=== PATIENT | female | born 1930 | race Caucasian/White ===

== ENCOUNTER 2016-11-26 22:00 | Inpatient (IN) | payer OTHER, BC ==
[~2016-11-26] VITALS: Ht 152.4 cm; Wt 43.7 kg
[~2016-11-26 22:00] MED LIST: ALLOPURINOL100 MG PO; ANTIVERT25 MG PO; ARICEPT10 MG PO; ASPIR 8181 M1 PO; ASPIR-LOW81 MG PO; ASPIRIN EC325 M1 PO; ATENOLOL25 MG PO; ATORVASTATIN CA40 MG PO; Aspirin E.C. PO; BENADRYL25 MG PO; BISOPROLOL FUMAR5 MG PO; BUTALB-APAP-CA1 EACH PO; COLCRYS0.6 MG PO; COZAAR100 MG PO; DIGITEK125 MC2 PO; DIGOXIN125 MCG PO; FUROSEMIDE20 MG PO; HYDROCODON-ACE1 EAC7 PO; LANOXIN,DIGI0.125 MG PO; LASIX20 MG PO; LIPITOR10 MG PO; LOSARTAN POTAS100 MG; LOSARTAN POTAS100 MG PO; METOPROLOL SUCC25 MG PO; METOPROLOL TART25 MG PO; MONTELUKAST SOD10 MG PO; PANTOPRAZOLE SO40 MG PO; PLAVIX75 MG PO; PREDNISONE10 MG PO; PROTONIX40 MG PO; SINGULAIR10 MG PO; TOPROL XL50 MG PO; TYLENOL REGULA325 MG PO; VITAMIN D400 UNI1 PO; ZESTRIL2.5 MG PO
[2016-11-26 22:54] LABS: HEMATOCRIT 24.3 % (36.0-46.0); MCH 27.8 PG (29.0-34.0); MCHC 32.1 G/DL (30.0-36.0); MCV 86.5 FL (83-99); MEAN PLAT.VOLUME 11.4 uM^3 (9.5-12.4); PLATELET COUNT 155 K/uL (156-360); RBC DIS.WIDTH-CV 14.6 % (11.8-14.6); RBC DIS.WIDTH-SD 46.5 % (39-53); RED BLOOD COUNT 2.81 M/uL (3.80-5.20); WHITE BLOOD COUNT 33.1 K/uL (4.1-10.2)
[2016-11-26 23:17] LABS: CHLORIDE 101 mEq/L (99-109); POTASSIUM 4.8 mEq/L (3.7-5.4); SODIUM 130 mEq/L (136-147)
[2016-11-26 23:19] LABS: GLUCOSE 136 mg/dL (70-99)
[2016-11-26 23:20] LABS: D-DIMER ELISA 0.46 mg/L FEU (< 0.57)
[2016-11-26 23:21] LABS: ANION GAP 15 MEQ/L (2-14)
[2016-11-26 23:23] LABS: GFR ESTIMATE (CALCULATED) 24 mL/min/
[2016-11-26 23:24] LABS: UREA NITROGEN (BUN) 48 mg/dL (9-23)
[2016-11-26 23:30] LABS: TROP-I INTERPRETATION POSITIVE
[2016-11-27] VITALS (32 sets, daily range): BP systolic 93–122; BP diastolic 35–67
[2016-11-27 00:29] LABS: BASE EXCESS -7.8 mEq/L (-3 to +3); BICARBONATE 16.3 mEq/L (22-26); CARBOXY HGB 1.1 % (0-5); METHEMOGLOBIN 1.5 % (0-1.5); PCO2 27 mm Hg (35-45); PO2 72 mm Hg (80-100); pH 7.39 (7.35-7.45)
[2016-11-27 00:30] LABS: COMMENTS - BLOOD GASES A+C+; DEVICE RA; SITE LR; TOTAL RESP RATE 25 resp/min
[2016-11-27 00:51] LABS: INTER. NORMALIZED RATIO 1.2; PROTHROMBIN TIME 12.4 (9.2-11.2); PTT 29.8 (25-32)
[2016-11-27 05:37] LABS: METH RESISTANT S AUREUS PCR NEGATIVE (NEGATIVE)
[2016-11-27 05:41] LABS: PROBE CHECK PASS; SPECIMEN PROCESSING CONTROL PASS
[2016-11-27 06:08] LABS: HEMATOCRIT 22.6 % (36.0-46.0); MCH 28.2 PG (29.0-34.0); MCHC 31.9 G/DL (30.0-36.0); MCV 88.6 FL (83-99); MEAN PLAT.VOLUME 11.5 uM^3 (9.5-12.4); PLATELET COUNT 152 K/uL (156-360); RBC DIS.WIDTH-CV 14.6 % (11.8-14.6); RBC DIS.WIDTH-SD 47.6 % (39-53); RED BLOOD COUNT 2.55 M/uL (3.80-5.20); WHITE BLOOD COUNT 28.4 K/uL (4.1-10.2)
[2016-11-27 07:19] LABS: TROP-I INTERPRETATION POSITIVE; TROPONIN-I 23.78 ng/mL (0.0-0.30)
[2016-11-27 07:20] LABS: ABS NEUTROPHIL COUNT 22.7; BAND NEUTROPHILS 2.5 % (0-8.0); EOSINOPHIL ABS CT 0; INSTRUMENT ABS NEUTROPHIL CT 19.1 K/uL; LYMPHOCYTES 4.5 % (15.0-45.0); MACROCYTES 1+; PLAT.SUFFICIENCY ADEQUATE; SEG.NEUTROPHILS 77.5 % (46.0-76.0)
[2016-11-27 07:34] LABS: Estimated Average Glucose 137 mg/dL (70-123); HEMOGLOBIN A1c (GLYCOHEMOGLOB) 6.4 % HGB (Below 5.7)
[2016-11-27 08:28] LABS: ANION GAP 15 MEQ/L (2-14); CHLORIDE 102 MEQ/L (99-109); GFR ESTIMATE (CALCULATED) 28 mL/min/; GLUCOSE 164 mg/dL (70-99); HDL CHOLESTEROL 37 MG/DL (Desirable>=50); LDL CHOLESTEROL 60 mg/dL (Desirable<100); MAGNESIUM 2.1 mg/dl (1.3-2.7); NON-HDL CHOLESTEROL 73 mg/dL (Desirable<160); POTASSIUM 5.2 MEQ/L (3.7-5.4); SAMPLE HEMOLYSIS CHECK 0; SAMPLE ICTERIC CHECK 0; SAMPLE LIPEMIA CHECK 0; SODIUM 130 MEQ/L (136-147); TOTAL CHOLESTEROL 110 mg/dL (Desirable<200); TRIGLYCERIDES 66 MG/DL (Normal: <150); UREA NITROGEN (BUN) 44 mg/dL (9-23)
[2016-11-27 08:43] LABS: BASE EXCESS -9.7 mEq/L (-3 to +3); BICARBONATE 14.9 mEq/L (22-26); CARBOXY HGB 1.4 % (0-5); METHEMOGLOBIN 2.1 % (0-1.5); PCO2 27 mm Hg (35-45); pH 7.35 (7.35-7.45)
[2016-11-27 08:44] LABS: COMMENTS - BLOOD GASES A+C+; DEVICE NC; O2 FLOW 2 L/MIN; PO2 138 mm Hg (80-100); SITE RR
[2016-11-27 12:37] LABS: TROP-I INTERPRETATION POSITIVE
[2016-11-27 13:13] LABS: TROPONIN-I 60.99 ng/mL (0.0-0.30)
[2016-11-27 18:18] LABS: MCV 85.8 FL (83-99)
[2016-11-27 19:38] LABS: TROP-I INTERPRETATION POSITIVE
[2016-11-27 20:00] LABS: TROPONIN-I 64.31 ng/mL (0.0-0.30)
[2016-11-28] VITALS (13 sets, daily range): BP systolic 85–121; BP diastolic 33–52
[2016-11-28 07:08] LABS: HEMATOCRIT 26.7 % (36.0-46.0); MCHC 32.6 G/DL (30.0-36.0); MCV 85.9 FL (83-99); RBC DIS.WIDTH-CV 16.1 % (11.8-14.6); RBC DIS.WIDTH-SD 50.4 % (39-53); WHITE BLOOD COUNT 22.2 K/uL (4.1-10.2)
[2016-11-28 07:10] LABS: TROP-I INTERPRETATION POSITIVE; TROPONIN-I 41.62 ng/mL (0.0-0.30)
[2016-11-28 07:14] LABS: RED BLOOD COUNT 3.11 M/uL (3.80-5.20)
[2016-11-28 07:35] LABS: ALKALINE PHOSPHATASE 73 IU/L (3-129); ANION GAP 12 MEQ/L (2-14); CHLORIDE 103 MEQ/L (99-109); GFR ESTIMATE (CALCULATED) 22 mL/min/; SAMPLE HEMOLYSIS CHECK 0; SAMPLE ICTERIC CHECK 0; SAMPLE LIPEMIA CHECK 0; SODIUM 132 MEQ/L (136-147); TOTAL BILIRUBIN 0.5 MG/DL (0.0-1.0); UREA NITROGEN (BUN) 56 mg/dL (9-23)
[2016-11-28 07:37] LABS: GLUCOSE 98 mg/dL (70-99)
[2016-11-28 10:50] LABS: EOSINOPHIL (%) 0 % (0-5); IMMATURE GRANULOCYTE (%) 2.2 % (0.0-0.7); IMMATURE GRANULOCYTE COUNT 0.5 K/uL; INSTRUMENT ABS NEUTROPHIL CT 9.4 K/uL; LYMPHOCYTE COUNT 0.9 K/uL (1.0-2.8); MONOCYTE (%) 51.5 % (3-12); MONOCYTE COUNT 11.5 K/uL (0-0.8); NEUTROPHIL (%) 42.3 % (45-76); NEUTROPHIL COUNT 9.4 K/uL (1.8-6.4)
[2016-11-28 17:06] LABS: C DIFF TOXIN NEGATIVE (NEGATIVE)
[2016-11-28 17:08] LABS: PROBE CHECK PASS; SPECIMEN PROCESSING CONTROL PASS
[2016-11-29] VITALS (9 sets, daily range): BP systolic 78–124; BP diastolic 42–56
[2016-11-29 04:56] LABS: MEAN PLAT.VOLUME 12.1 uM^3 (9.5-12.4); PLATELET COUNT 121 K/uL (156-360)
[2016-11-29 05:02] LABS: HEMATOCRIT 28.8 % (36.0-46.0); MCH 28.5 PG (29.0-34.0); MCV 86.5 FL (83-99); RBC DIS.WIDTH-CV 16.1 % (11.8-14.6); RBC DIS.WIDTH-SD 50.5 % (39-53); RED BLOOD COUNT 3.33 M/uL (3.80-5.20)
[2016-11-29 05:10] LABS: CHLORIDE 106 mEq/L (99-109); POTASSIUM 4.3 mEq/L (3.7-5.4); SODIUM 133 mEq/L (136-147)
[2016-11-29 05:12] LABS: GLUCOSE 109 mg/dL (70-99)
[2016-11-29 05:14] LABS: ANION GAP 13 MEQ/L (2-14)
[2016-11-29 05:16] LABS: GFR ESTIMATE (CALCULATED) 24 mL/min/
[2016-11-29 05:17] LABS: UREA NITROGEN (BUN) 56 mg/dL (9-23)
[2016-11-29 06:13] LABS: IRON 110 MCG/DL (35-150)
[2016-11-29 09:05] LABS: FERRITIN > 1500 NG/ML (10-291)
[2016-11-29 09:09] LABS: DIGOXIN 2.9 ng/mL (0.8-2.0)
[2016-11-30] VITALS (9 sets, daily range): BP systolic 106–119; BP diastolic 36–47
[2016-11-30 04:45] LABS: CHLORIDE 106 mEq/L (99-109); POTASSIUM 3.5 mEq/L (3.7-5.4); SODIUM 133 mEq/L (136-147)
[2016-11-30 04:47] LABS: GLUCOSE 86 mg/dL (70-99)
[2016-11-30 04:48] LABS: ANION GAP 12 MEQ/L (2-14)
[2016-11-30 04:50] LABS: GFR ESTIMATE (CALCULATED) 30 mL/min/
[2016-11-30 04:51] LABS: UREA NITROGEN (BUN) 43 mg/dL (9-23)
[2016-12-01] VITALS: BP 128/46
[2016-12-01 05:00] VITALS: BP 133/43
[2016-12-01 06:14] LABS: EOSINOPHIL (%) 0.3 % (0-5); EOSINOPHIL COUNT 0.1 K/uL (0-0.3); HEMATOCRIT 27.2 % (36.0-46.0); IMMATURE GRANULOCYTE (%) 4.2 % (0.0-0.7); IMMATURE GRANULOCYTE COUNT 0.9 K/uL; INSTRUMENT ABS NEUTROPHIL CT 11.1 K/uL; MCH 28.3 PG (29.0-34.0); MCHC 32.7 G/DL (30.0-36.0); MCV 86.3 FL (83-99); MEAN PLAT.VOLUME 11.9 uM^3 (9.5-12.4); MONOCYTE COUNT 9.1 K/uL (0-0.8); NEUTROPHIL COUNT 11.1 K/uL (1.8-6.4); PLATELET COUNT 144 K/uL (156-360); RBC DIS.WIDTH-CV 16.2 % (11.8-14.6); RBC DIS.WIDTH-SD 51.4 % (39-53); RED BLOOD COUNT 3.15 M/uL (3.80-5.20)
[2016-12-01 06:17] LABS: WHITE BLOOD COUNT 22.3 K/uL (4.1-10.2)
[2016-12-01 06:55] LABS: ANION GAP 10 MEQ/L (2-14); CHLORIDE 104 MEQ/L (99-109); GFR ESTIMATE (CALCULATED) 35 mL/min/; GLUCOSE 91 mg/dL (70-99); POTASSIUM 3.8 MEQ/L (3.7-5.4); SAMPLE HEMOLYSIS CHECK 0; SAMPLE ICTERIC CHECK 0; SAMPLE LIPEMIA CHECK 0; SODIUM 134 MEQ/L (136-147); UREA NITROGEN (BUN) 35 mg/dL (9-23)
[2016-12-01 08:00] VITALS: BP 140/52
[2016-12-01 12:00] VITALS: BP 143/55
[2016-12-01 15:40] VITALS: BP 131/44
[2016-12-02] MEDS ORDERED: METOPROLOL TART25 MG PO (14:23)
[2016-12-02] MEDS ORDERED: CLOPIDOGREL75 MG PO (14:24)
[2016-12-02] MEDS ORDERED: ASPIRIN EC325 MG PO (14:24)
[2016-12-02] MEDS ORDERED: NITROSTAT0.4 MG SL (14:25)
[2016-12-02] MEDS ORDERED: BENADRYL25 MG PO (14:26)
== END 2016-12-01 15:50 | DRG 246 ==
LOC: EME → EDBD 22:00 → EME 22:00 → CATH 11-27 01:01 → EME 11-27 01:01 → 4WEST 11-27 04:05
PROVIDERS: Anesthesiology; Emergency Medicine; Hospitalist; Internal Medicine; Internal Medicine Critical Care Medicine; Internal Medicine Interventional Cardiology; Internal Medicine Nephrology
DX: I21.11 ST elevation (STEMI) myocardial infarction involving right coronary artery (principal); R57.0 Cardiogenic shock; K72.00 Acute and subacute hepatic failure without coma; I23.7 Postinfarction angina; T82.855A Stenosis of coronary artery stent, initial encounter; N17.0 Acute kidney failure with tubular necrosis; C93.10 Chronic myelomonocytic leukemia not having achieved remission; E87.2 Acidosis; Q25.46 Tortuous aortic arch; I50.22 Chronic systolic (congestive) heart failure; Z68.1 Body mass index [BMI] 19.9 or less, adult; I25.10 Atherosclerotic heart disease of native coronary artery without angina pectoris; I12.9 Hypertensive chronic kidney disease with stage 1 through stage 4 chronic kidney disease, or unspecified chronic kidney disease; N18.3 Chronic kidney disease, stage 3 (moderate); D63.0 Anemia in neoplastic disease; I48.0 Paroxysmal atrial fibrillation; I08.3 Combined rheumatic disorders of mitral, aortic and tricuspid valves; I44.7 Left bundle-branch block, unspecified; F03.90 Unspecified dementia, unspecified severity, without behavioral disturbance, psychotic disturbance, mood disturbance, and anxiety; R63.6 Underweight; I25.2 Old myocardial infarction; Z86.73 Personal history of transient ischemic attack (TIA), and cerebral infarction without residual deficits; Z79.82 Long term (current) use of aspirin; Z88.2 Allergy status to sulfonamides; Z88.7 Allergy status to serum and vaccine; Z87.891 Personal history of nicotine dependence; E87.6 Hypokalemia
CPT/HCPCS: 36600; 71010; 71020; 76770; 80048; 80053; 80061; 80069; 80162; 81003; 82306; 82607; 82728; 82746; 82803; 83036; 83540; 83605; 83735; 84100; 84300; 84443; 84466; 84484; 85014; 85018; 85025; 85027; 85347; 85379; 85610; 85730; 86850; 86900; 86901; 86920; 87040; 87493; 87641; 93005; 93306; 94799; 99281; 99285; C1725; C1769; C1874; C1887; C1894; J0153; J0456; J0461; J0696; J1160; J1265; J1630; J1644; J1940; J2250; J2405; J2930; J3010; J7030; J7050; P9016; S0028

== ENCOUNTER 2016-12-02 12:26 | Inpatient (IN) | payer OTHER, BC ==
[~2016-12-02] VITALS: Ht 154.9 cm; Wt 44.2 kg
[2016-12-02 13:17] LABS: HEMATOCRIT 30.8 % (36.0-46.0); MCH 27.8 PG (29.0-34.0); MCHC 31.8 G/DL (30.0-36.0); MCV 87.3 FL (83-99); MEAN PLAT.VOLUME 11.9 uM^3 (9.5-12.4); PLATELET COUNT 177 K/uL (156-360); RBC DIS.WIDTH-CV 16.5 % (11.8-14.6); RBC DIS.WIDTH-SD 52.4 % (39-53); RED BLOOD COUNT 3.53 M/uL (3.80-5.20); WHITE BLOOD COUNT 26.4 K/uL (4.1-10.2)
[2016-12-02 13:24] LABS: CHLORIDE 107 mEq/L (99-109); INTER. NORMALIZED RATIO 1.2; POTASSIUM 4.4 mEq/L (3.7-5.4); PROTHROMBIN TIME 12.6 (9.2-11.2); SODIUM 136 mEq/L (136-147)
[2016-12-02 13:25] LABS: MAGNESIUM 2.2 mg/dL (1.3-2.7)
[2016-12-02 13:26] LABS: GLUCOSE 115 mg/dL (70-99)
[2016-12-02 13:27] LABS: ANION GAP 14 MEQ/L (2-14)
[2016-12-02 13:29] LABS: GFR ESTIMATE (CALCULATED) 35 mL/min/; PTT 23.1 (25-32)
[2016-12-02 13:30] LABS: UREA NITROGEN (BUN) 32 mg/dL (9-23)
[2016-12-02 13:37] LABS: TROP-I INTERPRETATION POSITIVE; TROPONIN-I 7.72 ng/mL (0.0-0.30)
[2016-12-02 14:04] LABS: ABS NEUTROPHIL COUNT 20.5; BAND NEUTROPHILS 4.5 % (0-8.0); EOSINOPHIL ABS CT 0.2; EOSINOPHILS 0.9 % (0-5.0); INSTRUMENT ABS NEUTROPHIL CT 14.1 K/uL; LYMPHOCYTES 2.7 % (15.0-45.0); MACROCYTES 1+; OVALOCYTES 1+; PLAT.SUFFICIENCY ADEQUATE; SEG.NEUTROPHILS 73.2 % (46.0-76.0); SPHEROCYTES 1+
[2016-12-02] MEDS ORDERED: METOPROLOL TART25 MG PO (14:23)
[2016-12-02] MEDS ORDERED: CLOPIDOGREL75 MG PO (14:24)
[2016-12-02] MEDS ORDERED: ASPIRIN EC325 MG PO (14:24)
[2016-12-02] MEDS ORDERED: NITROSTAT0.4 MG SL (14:25)
[2016-12-02] MEDS ORDERED: BENADRYL25 MG PO (14:26)
[2016-12-02 17:32] VITALS: BP 138/62
[2016-12-02 19:10] LABS: TROP-I INTERPRETATION POSITIVE; TROPONIN-I 8.71 ng/mL (0.0-0.30)
[2016-12-02 20:06] VITALS: BP 136/60
[2016-12-02 23:38] VITALS: BP 120/56
[2016-12-03 01:23] LABS: TROP-I INTERPRETATION POSITIVE; TROPONIN-I 6.62 ng/mL (0.0-0.30)
[2016-12-03 04:00] VITALS: BP 136/60
[2016-12-03 07:11] LABS: HEMATOCRIT 29.5 % (36.0-46.0); MCH 27.4 PG (29.0-34.0); MCHC 31.5 G/DL (30.0-36.0); MEAN PLAT.VOLUME 11.6 uM^3 (9.5-12.4); PLATELET COUNT 176 K/uL (156-360); RBC DIS.WIDTH-CV 16.2 % (11.8-14.6); RBC DIS.WIDTH-SD 51.6 % (39-53); RED BLOOD COUNT 3.39 M/uL (3.80-5.20)
[2016-12-03 07:32] LABS: ANION GAP 11 MEQ/L (2-14); CHLORIDE 101 MEQ/L (99-109); GFR ESTIMATE (CALCULATED) 35 mL/min/; GLUCOSE 112 mg/dL (70-99); MAGNESIUM 1.8 mg/dl (1.3-2.7); POTASSIUM 3.7 MEQ/L (3.7-5.4); SAMPLE HEMOLYSIS CHECK 0; SAMPLE ICTERIC CHECK 0; SAMPLE LIPEMIA CHECK 0; SODIUM 134 MEQ/L (136-147); UREA NITROGEN (BUN) 28 mg/dL (9-23); URIC ACID 8.5 mg/dL (3.1-9.2)
[2016-12-03 07:45] VITALS: BP 133/64
[2016-12-03 08:11] LABS: DIGOXIN 1.9 ng/mL (0.8-2.0)
[2016-12-03 12:12] VITALS: BP 127/58
[2016-12-03 16:55] VITALS: BP 134/63
[2016-12-03 19:10] VITALS: BP 148/66
[2016-12-03 23:52] VITALS: BP 130/89
[2016-12-04 04:00] VITALS: BP 132/86
[2016-12-04 05:06] LABS: HEMATOCRIT 27.1 % (36.0-46.0); MCHC 32.5 G/DL (30.0-36.0); MCV 86.3 FL (83-99); MEAN PLAT.VOLUME 11.7 uM^3 (9.5-12.4); PLATELET COUNT 198 K/uL (156-360); RBC DIS.WIDTH-CV 15.9 % (11.8-14.6); RBC DIS.WIDTH-SD 50.1 % (39-53); RED BLOOD COUNT 3.14 M/uL (3.80-5.20); WHITE BLOOD COUNT 26.4 K/uL (4.1-10.2)
[2016-12-04 05:14] LABS: CHLORIDE 99 mEq/L (99-109); POTASSIUM 3.7 mEq/L (3.7-5.4); SODIUM 131 mEq/L (136-147)
[2016-12-04 05:16] LABS: GLUCOSE 132 mg/dL (70-99)
[2016-12-04 05:17] LABS: ANION GAP 11 MEQ/L (2-14)
[2016-12-04 05:20] LABS: GFR ESTIMATE (CALCULATED) 35 mL/min/
[2016-12-04 05:21] LABS: UREA NITROGEN (BUN) 31 mg/dL (9-23)
[2016-12-04 07:05] LABS: ABS NEUTROPHIL COUNT 18.6; ANISOCYTOSIS 1+; BAND NEUTROPHILS 2.7 % (0-8.0); EOSINOPHIL ABS CT 0; INSTRUMENT ABS NEUTROPHIL CT 11.5 K/uL; LYMPHOCYTES 3.6 % (15.0-45.0); MICROCYTOSIS 1+; OVALOCYTES 1+; PLAT.SUFFICIENCY ADEQUATE; SEG.NEUTROPHILS 67.6 % (46.0-76.0)
[2016-12-04 07:09] VITALS: BP 129/60
[2016-12-04 11:37] VITALS: BP 154/67
[2016-12-04 15:33] VITALS: BP 151/65
[2016-12-04 19:21] VITALS: BP 135/65
[2016-12-04 23:08] VITALS: BP 151/60
[2016-12-04 23:32] LABS: METH RESISTANT S AUREUS PCR NEGATIVE (NEGATIVE)
[2016-12-04 23:33] LABS: PROBE CHECK PASS; SPECIMEN PROCESSING CONTROL PASS
[2016-12-05 02:39] VITALS: BP 151/67
[2016-12-05 04:21] VITALS: BP 158/70
[2016-12-05 05:55] LABS: HEMATOCRIT 25.1 % (36.0-46.0); MCHC 32.3 G/DL (30.0-36.0); MCV 86.9 FL (83-99); MEAN PLAT.VOLUME 11.6 uM^3 (9.5-12.4); PLATELET COUNT 174 K/uL (156-360); RBC DIS.WIDTH-SD 50.7 % (39-53); RED BLOOD COUNT 2.89 M/uL (3.80-5.20); WHITE BLOOD COUNT 23.5 K/uL (4.1-10.2)
[2016-12-05 06:46] LABS: ANION GAP 11 MEQ/L (2-14); CHLORIDE 98 MEQ/L (99-109); GFR ESTIMATE (CALCULATED) 35 mL/min/; POTASSIUM 3.6 MEQ/L (3.7-5.4); SAMPLE HEMOLYSIS CHECK 0; SAMPLE ICTERIC CHECK 0; SAMPLE LIPEMIA CHECK 0; SODIUM 134 MEQ/L (136-147); UREA NITROGEN (BUN) 32 mg/dL (9-23)
[2016-12-05 06:49] LABS: GLUCOSE 76 mg/dL (70-99)
[2016-12-05 07:49] LABS: ABS NEUTROPHIL COUNT 15.3; EOSINOPHIL ABS CT 0; INSTRUMENT ABS NEUTROPHIL CT 10.4 K/uL; LYMPHOCYTES 1.8 % (15.0-45.0); METAMYELOCYTES 3.6 %; MYELOCYTES 2.7 %; OVALOCYTES 1+; PLAT.SUFFICIENCY ADEQUATE; POIKILOCYTOSIS 1+; SEG.NEUTROPHILS 64.9 % (46.0-76.0)
[2016-12-05 08:00] VITALS: BP 133/59
[2016-12-05 12:50] VITALS: BP 112/53
[2016-12-05 19:20] VITALS: BP 109/55
[2016-12-05 21:50] VITALS: BP 122/58
[2016-12-06 03:45] VITALS: BP 128/60
[2016-12-06 05:29] LABS: MCH 27.9 PG (29.0-34.0); MCHC 32.2 G/DL (30.0-36.0); MCV 86.5 FL (83-99); MEAN PLAT.VOLUME 11.3 uM^3 (9.5-12.4); PLATELET COUNT 193 K/uL (156-360); RBC DIS.WIDTH-CV 16.3 % (11.8-14.6); RBC DIS.WIDTH-SD 51.5 % (39-53); RED BLOOD COUNT 3.12 M/uL (3.80-5.20); WHITE BLOOD COUNT 22.4 K/uL (4.1-10.2)
[2016-12-06 05:55] LABS: ANION GAP 10 MEQ/L (2-14); ANION GAP 11 MEQ/L (2-14); CHLORIDE 98 MEQ/L (99-109); CHLORIDE 99 MEQ/L (99-109); GFR ESTIMATE (CALCULATED) 38 mL/min/; GLUCOSE 84 mg/dL (70-99); GLUCOSE 85 mg/dL (70-99); POTASSIUM 3.2 MEQ/L (3.7-5.4); POTASSIUM 3.3 MEQ/L (3.7-5.4); SAMPLE HEMOLYSIS CHECK 0; SAMPLE ICTERIC CHECK 0; SAMPLE LIPEMIA CHECK 0; SODIUM 134 MEQ/L (136-147); SODIUM 135 MEQ/L (136-147); UREA NITROGEN (BUN) 29 mg/dL (9-23)
[2016-12-06 06:57] VITALS: BP 135/63
[2016-12-06 06:59] LABS: ABS NEUTROPHIL COUNT 14.7; ANISOCYTOSIS 1+; BAND NEUTROPHILS 2.6 % (0-8.0); EOSINOPHIL ABS CT 0; INSTRUMENT ABS NEUTROPHIL CT 8.1 K/uL; LYMPHOCYTES 3.5 % (15.0-45.0); METAMYELOCYTES 1.7 %; MICROCYTOSIS 1+; MYELOCYTES 5.3 %; OVALOCYTES 1+; PLAT.SUFFICIENCY ADEQUATE; POIKILOCYTOSIS 1+; SEG.NEUTROPHILS 63.2 % (46.0-76.0)
[2016-12-06 11:19] VITALS: BP 140/77
[2016-12-06 15:38] VITALS: BP 127/60
[2016-12-06 18:43] VITALS: BP 110/55
[2016-12-06 22:27] VITALS: BP 108/56
[2016-12-07 06:19] LABS: HEMATOCRIT 28.5 % (36.0-46.0); MCH 28.2 PG (29.0-34.0); MCHC 32.3 G/DL (30.0-36.0); MCV 87.4 FL (83-99); MEAN PLAT.VOLUME 11.2 uM^3 (9.5-12.4); PLATELET COUNT 178 K/uL (156-360); RBC DIS.WIDTH-CV 16.2 % (11.8-14.6); RBC DIS.WIDTH-SD 51.1 % (39-53); RED BLOOD COUNT 3.26 M/uL (3.80-5.20); WHITE BLOOD COUNT 20.2 K/uL (4.1-10.2)
[2016-12-07 06:48] LABS: ALKALINE PHOSPHATASE 77 IU/L (3-129); ANION GAP 10 MEQ/L (2-14); CHLORIDE 97 MEQ/L (99-109); GFR ESTIMATE (CALCULATED) 41 mL/min/; GLUCOSE 86 mg/dL (70-99); POTASSIUM 3.6 MEQ/L (3.7-5.4); SAMPLE HEMOLYSIS CHECK 0; SAMPLE ICTERIC CHECK 0; SAMPLE LIPEMIA CHECK 0; SODIUM 136 MEQ/L (136-147); TOTAL BILIRUBIN 0.5 MG/DL (0.0-1.0); UREA NITROGEN (BUN) 25 mg/dL (9-23)
[2016-12-07 06:58] VITALS: BP 133/63
[2016-12-07 07:40] LABS: ABS NEUTROPHIL COUNT 11.3; ANISOCYTOSIS 1+; ATYPICAL LYMPHOCYTE 2.8 %; BAND NEUTROPHILS 0.9 % (0-8.0); BASOPHILS 1.9 %; EOSINOPHIL ABS CT 0; LYMPHOCYTES 7.5 % (15.0-45.0); MICROCYTOSIS 1+; MYELOCYTES 1.9 %; PLAT.SUFFICIENCY ADEQUATE; SEG.NEUTROPHILS 55.1 % (46.0-76.0)
[2016-12-07 11:44] VITALS: BP 129/56
[2016-12-07 15:50] VITALS: BP 132/60
== END 2016-12-07 18:44 | DRG 281 ==
LOC: EME 12:26 → 4EAST 14:19 → EDOF 14:19 → 4EAST 17:08 → 5EAST 12-05 21:36
PROVIDERS: Emergency Medicine; Hospitalist; Internal Medicine; Internal Medicine Nephrology
DX: I50.23 Acute on chronic systolic (congestive) heart failure (principal); I21.3 ST elevation (STEMI) myocardial infarction of unspecified site; N17.9 Acute kidney failure, unspecified; I13.0 Hypertensive heart and chronic kidney disease with heart failure and stage 1 through stage 4 chronic kidney disease, or unspecified chronic kidney disease; N18.3 Chronic kidney disease, stage 3 (moderate); E87.2 Acidosis; E87.1 Hypo-osmolality and hyponatremia; F03.91 Unspecified dementia, unspecified severity, with behavioral disturbance; C91.10 Chronic lymphocytic leukemia of B-cell type not having achieved remission; I25.10 Atherosclerotic heart disease of native coronary artery without angina pectoris; R64 Cachexia; Z68.1 Body mass index [BMI] 19.9 or less, adult; E78.5 Hyperlipidemia, unspecified; D63.0 Anemia in neoplastic disease; Z66 Do not resuscitate; Z51.5 Encounter for palliative care; T46.0X1A Poisoning by cardiac-stimulant glycosides and drugs of similar action, accidental (unintentional), initial encounter; E87.6 Hypokalemia; G89.29 Other chronic pain; I48.91 Unspecified atrial fibrillation; M81.0 Age-related osteoporosis without current pathological fracture; K44.9 Diaphragmatic hernia without obstruction or gangrene; I08.0 Rheumatic disorders of both mitral and aortic valves; I25.5 Ischemic cardiomyopathy; I44.7 Left bundle-branch block, unspecified; Z86.73 Personal history of transient ischemic attack (TIA), and cerebral infarction without residual deficits; Z79.02 Long term (current) use of antithrombotics/antiplatelets; Z79.82 Long term (current) use of aspirin; Z95.5 Presence of coronary angioplasty implant and graft; Z87.891 Personal history of nicotine dependence
CPT/HCPCS: 71010; 80048; 80048 91; 80053; 80069; 80162; 81003; 82010; 83605; 83735; 83880; 84100; 84484; 84550; 85025; 85027; 85610; 85730; 87641; 93005; 94799; 99281; 99284; J0696; J0881; J1200; J1644; J1940; J2930; J7050; J7070; S0028